=== PATIENT | female | born 1965 | race Caucasian/White ===

== ENCOUNTER 2021-04-21 18:39 | Emergency (ER) | payer OTHER, SELFPAY ==
--- NOTE | 2021-04-21 18:53 | W.ED.PSYCH ---
HPI - Psych General: Chief Complaint: Psychiatric Symptoms Stated Complaint: PSYCH EVAL Time Seen by Provider: 04/21/21 18:52 Source: EMS and police Limitations: altered mental status History of Present Illness: HPI Narrative: Ms. Colon is a 56-year-old lady with unclear past medical history though per medication review likely psych who presents the emergency department with altered mental status. She presents via law enforcement and EMS. Per law enforcement report they attempted to pull her over and she was acting erratically. She subsequently fled. She has been interacting with verbal and visual stimuli that are not present. The exact course, duration, intensity, provoking, exacerbating, or alleviating factors are unclear given patient's mental status change. She repeatedly motions with her hands seemingly to convey her will upon others. She states that she is going to go see her mother. When asked about her mother she does admit that her mother is . She will not elaborate further with grunts to this incongruity. Review of Systems General: Reports: ROS unobtainable due to mental status Physical Exam Narrative: EXAM NARRATIVE: GENERAL/CONSTITUTIONAL - well-appearing. Altered mental status Eyes - PERRL, no scleral icterus, no conjunctival injection ENMT - Atraumatic external nose and ears. Moist mucous membranes NECK - supple. trachea midline CARDIOVASCULAR - regular rate and rhythm. Peripheral pulses 2+ and equal RESPIRATORY -clear to auscultation bilaterally. ABDOMEN/GI - Nontender/Nondistended. MSK - Extremities without obvious deformity or tenderness to palpation SKIN - Warm, Dry NEURO - alert but unable to assess orientation. Moves all extremities equally. PSYCH -impaired cognition Course ED course: - Patient was seen and evaluated by me at bedside - Patient placed on cardiac monitors, IV access obtained - Initial evaluation notable for altered mental status, difficulty redirecting. Patient initially clinically concerning for psychosis - Medications ordered for patient and staff safety - Labs notable for mild leukocytosis without other significant hematologic abnormalities. Metabolic panel notable for marked hyponatremia and hypokalemia. Replenishment ordered of potassium and magnesium. IV fluid drip ordered at 300 cc/h for hyponatremia correction less than 0.5 mEq/hr - Imaging notable for no acute intracranial hemorrhage or mass. No acute lung pathology - Upon serial reexamination after treatment the patient was improved - Based on patient history, evaluation, labs, and imaging as interpreted the most likely cause of the patient's condition is likely multifactorial though symptomatic hyponatremia requiring admission is present. - We have no ICU beds, therefore patient will be transferred - Patient care handed off to overnight physician Dr. Cox pending transfer Vital Signs: Vital signs: Vital Signs Temperature 97.9 F 04/21/21 19:06 Pulse Rate 72 04/22/21 03:03 Respiratory Rate 16 04/22/21 03:03 Blood Pressure 123/50 04/22/21 03:03 Pulse Oximetry 98 04/22/21 03:03 MDM - Psych Medical Records: Attestation: I reviewed the patient's medical records. Lab Data: Attestation: I reviewed the patient's lab results. Labs: Lab Results 04/21/21 04/21/21 04/21/21 19:45 19:45 20:10 WBC RBC Hgb Hct MCV MCH MCHC RDW Plt Count MPV Neut % (Auto) Lymph % (Auto) Mcminn % (Auto) Eos % (Auto) Baso % (Auto) Neut # (Auto) Lymph # (Auto) Mcminn # (Auto) Eos # (Auto) Baso # (Auto) Nucleated RBC % (a uto) Nucleated RBCs # Sodium 117 mmol/L L* mmo l/L (136-145) Potassium 2.8 mmol/L L* mmo l/L (3.5-5.1) Chloride 82 mmol/L L mmol/ L (98-107) Carbon Dioxide 25 mmol/L mmol/L (22-29) Anion Gap 12.8 (5-19) BUN 4 mg/dL L mg/dL (6-20) Creatinine 0.3 mg/dL L mg/dL (0.5-0.9) GFR Calculation 231.0 mL/min H mL /min (90-130) Glucose 118 mg/dL H mg/dL (65-115) Calculated Osmolal ity 242 mOsm/kg L mOs m/kg (285-295) Calcium 8.8 mg/dL mg/dL (8.5-10.5) Magnesium Total Bilirubin 0.4 mg/dL mg/dL (0.15-1.2) AST 21 U/L U/L (0-32) ALT 11 U/L U/L (0-33) Alkaline Phosphata se 52 IU/L IU/L (35-105) Total Protein 6.1 g/dL L g/dL (6.6-8.7) Albumin 3.9 g/dL g/dL (3.5-5.2) Globulin 2.2 g/dL g/dL (1.3-4.6) TSH 1.71 uIU/mL uIU/m L (0.27-4.20) HCG, Qual Negative (Negative) Salicylates < 0.3 mg/dL L mg/ dL (3-10) Urine Opiates Scre en Negative ng/mL ng /mL (Negative) Acetaminophen < 5.0 ug/mL L ug/ mL (10-30) Ur Barbiturates Sc reen Negative ng/mL ng /mL (Negative) Ur Phencyclidine S crn Negative ng/mL ng /mL (Negative) Ur Amphetamines Sc reen Negative ng/mL ng /mL (Negative) U Benzodiazepines Scrn Negative ng/mL ng /mL (Negative) Urine Cocaine Scre en Negative ng/mL ng /mL (Negative) U Marijuana (THC) Screen Negative ng/mL ng /mL (Negative) Ethyl Alcohol < 10 mg/dL mg/dL (0-10) SARS-CoV-2 Ag (Rap id) 04/21/21 04/21/21 04/22/21 20:10 20:10 01:14 WBC 10.9 10^3/uL H 10 ^3/uL (4.0-10.0) RBC 4.51 10^6/uL 10^6 /uL (4.1-5.3) Hgb 14.4 g/dL g/dL (11.5-15.3) Hct 40.5 % % (37.0-47.0) MCV 89.8 fl fl (81-99) MCH 31.9 pg pg (28.0-34.0) MCHC 35.6 g/dL g/dL (30.0-36.0) RDW 11.8 % L % (12.1-15.1) Plt Count 301 10^3/cmm 10^3 /cmm (130-400) MPV 9.3 fL fL (7.4-10.4) Neut % (Auto) 77.0 % % Lymph % (Auto) 14.4 % % Mcminn % (Auto) 7.9 % % Eos % (Auto) 0.1 % % Baso % (Auto) 0.3 % % Neut # (Auto) 8.37 10^3/uL H 10 ^3/uL (1.8-7.7) Lymph # (Auto) 1.6 10^3/uL 10^3/ uL (0.8-4.8) Mcminn # (Auto) 0.9 10^3/uL 10^3/ uL (0.2-0.9) Eos # (Auto) 0.0 10^3/uL 10^3/ uL (0.0-0.8) Baso # (Auto) 0.0 10^3/uL 10^3/ uL (0.0-0.1) Nucleated RBC % (a uto) 0 % % Nucleated RBCs # 0.0 /100WBC /100W BC Sodium Potassium Chloride Carbon Dioxide Anion Gap BUN Creatinine GFR Calculation Glucose Calculated Osmolal ity Calcium Magnesium 1.2 mg/dL L mg/dL (1.7-2.3) Total Bilirubin AST ALT Alkaline Phosphata se Total Protein Albumin Globulin TSH HCG, Qual Salicylates Urine Opiates Scre en Acetaminophen Ur Barbiturates Sc reen Ur Phencyclidine S crn Ur Amphetamines Sc reen U Benzodiazepines Scrn Urine Cocaine Scre en U Marijuana (THC) Screen Ethyl Alcohol SARS-CoV-2 Ag (Rap id) Negative (Negative) EKG Data^: EKG 1: Attestation: I personally reviewed and interpreted this EKG as follows: EKG interpretation date: 04/21/21 EKG interpretation time: 21:33 Interpretation: Twelve-lead EKG shows a regular rhythm at a rate of 66. MD interval 154, QRS duration 93, QTc 459. Normal axis. Interpretation: Sinus rhythm. Nonspecific ST segment abnormalities. Critical Care Time Critical Care Time: Critical Care Time: Yes Total Critical Care Time: 35 Attestation: This case had a high probability of a clinically significant, sudden, or life threatening deterioration of this patient's condition which required my full and direct attention, intervention and personal management. Coding Level of Care Code ED Industrial/Organizational Psychologist for Jonna Turpin
[2021-04-21 19:06] VITALS: BP 159/88; PULSE 78; RESP 20; TEMP 36.6; O2SAT 97; BMI 21.6
--- NOTE | 2021-04-21 19:08 | ECG_ITS ---
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 Measurements Intervals [place] Rate: 66 P: 62 [place]: 154 QRS: 70 QRSD: 93 T: 61 QT: 445 QTc: 469 Interpretive Statements SINUS RHYTHM POSSIBLE LEFT ATRIAL ENLARGEMENT [-0.1mV P-WAVE IN V1/V2] MODERATE T-WAVE ABNORMALITY, CONSIDER ANTERIOR ISCHEMIA [-0.1+ mV T-WAVE IN V3/V4] No previous ECG available for comparison Electronically Signed On 04-22-2021 22:07:39 CDT by Yamel Morris M.D. [id number]
[2021-04-21] MEDS: haloperidol inj 5 mg/mL INJ 1 mL 2.5 MG IM (19:16)
[2021-04-21] MEDS: LORazepam 2 mg/mL INJ 1 mL IM (19:16)
[2021-04-21] MEDS: midazolam 1 mg/mL INJ 5 ML 4 MG IM (19:31)
[2021-04-21 20:06] LABS: HCG Qualitative Urine. Negative (Negative)
[2021-04-21 20:22] LABS: Basophils % 0.3 %; Eosinophils % 0.1 %; Hematocrit 40.5 % (37.0-47.0); Hemoglobin 14.4 g/dL (11.5-15.3); Lymphocytes # 1.6 10^3/uL (0.8-4.8); Lymphocytes % 14.4 %; Mean Corpuscular HGB Conc 35.6 g/dL (30.0-36.0); Mean Corpuscular Hemoglobin 31.9 pg (28.0-34.0); Mean Corpuscular Volume 89.8 fl (81-99); Mean Platelet Volume 9.3 fL (7.4-10.4); Monocytes # 0.9 10^3/uL (0.2-0.9); Monocytes % 7.9 %; Neutrophils # 8.37 10^3/uL (1.8-7.7); Nucleated Red Blood Cells % 0 %; Platelet Count 301 10^3/cmm (130-400); Red Blood Count 4.51 10^6/uL (4.1-5.3); Red Cell Distribution Width 11.8 % (12.1-15.1); White Blood Count 10.9 10^3/uL (4.0-10.0)
[2021-04-21 21:03] VITALS: PULSE 64; RESP 16; O2SAT 94
[2021-04-21 21:09] LABS: Alanine Aminotransferase 11 U/L (0-33); Albumin Level 3.9 g/dL (3.5-5.2); Alkaline Phosphatase 52 IU/L (35-105); Anion Gap 12.8 (5-19); Aspartate Amino Transferase 21 U/L (0-32); Blood Urea Nitrogen 4 mg/dL (6-20); Calcium 8.8 mg/dL (8.5-10.5); Carbon Dioxide 25 mmol/L (22-29); Chloride 82 mmol/L (98-107); Globulin 2.2 g/dL (1.3-4.6); Glucose 118 mg/dL (65-115); Osmolality Calculated 242 mOsm/kg (285-295); Thyroid Stimulating Hormone 1.71 uIU/mL (0.27-4.20); Total Bilirubin 0.4 mg/dL (0.15-1.2); Total Protein 6.1 g/dL (6.6-8.7)
[2021-04-21 21:15] LABS: Sodium 117 mmol/L (136-145)
[2021-04-21 21:16] LABS: Acetaminophen < 5.0 ug/mL (10-30); Alcohol Level < 10 mg/dL (0-10); Potassium 2.8 mmol/L (3.5-5.1); Salicylate < 0.3 mg/dL (3-10)
--- NOTE | 2021-04-21 21:25 | XRR_ITS ---
PROCEDURE INFORMATION: Exam: XR Chest Exam date and time: 04/21/2021 9:25 PM Age: 56 years old Clinical indication: Cough; Additional info: AMS, hyponatremia, ? mass TECHNIQUE: Imaging protocol: XR of the chest. Views: 1 view. COMPARISON: No relevant prior studies available. FINDINGS: Lungs: Unremarkable. No consolidation. Pleural spaces: Unremarkable. No pleural effusion. No pneumothorax. Heart/Mediastinum: Unremarkable. No cardiomegaly. Bones/joints: No acute abnormality. XR/XR chest 1V portable [id number] IMPRESSION: No acute findings. Radiation Dose CTDIVOL = (mGy): DLP = (mGy-cm)
--- NOTE | 2021-04-21 21:25 | CTR_ITS ---
PROCEDURE INFORMATION: Exam: CT Head Without Contrast Exam date and time: 04/21/2021 9:25 PM Age: 56 years old Clinical indication: Altered mental status/memory loss; Additional info: AMS TECHNIQUE: Imaging protocol: Computed tomography of the head without contrast. Radiation optimization: All CT scans at this facility use at least one of these dose optimization techniques: automated exposure control; mA and/or kV adjustment per patient size (includes targeted exams where dose is matched to clinical indication); or iterative reconstruction. COMPARISON: No relevant prior studies available. RADIATION DOSE METRICS: Total DLP (mGy-cm): 651.78 FINDINGS: Brain: There is volume loss and periventricular low density compatible with chronic small vessel disease changes. There is no acute hemorrhage, edema or mass effect. There are small bifrontal benign hygromas. Cerebral ventricles: No ventriculomegaly. Paranasal sinuses: Visualized sinuses are unremarkable. No fluid levels. Mastoid air cells: Visualized mastoid air cells are well aerated. Bones/joints: Unremarkable. No acute fracture. Soft tissues: Unremarkable. CT/CT head wo con* [id number] IMPRESSION: No acute intracranial abnormality. There is diffuse volume loss/small bilateral hygromas which are prominent for the patient's age. Radiation Dose CTDIVOL = (mGy): DLP = 651.78 (mGy-cm)
[2021-04-21 21:30] LABS: Amphetamines Screen Urine Negative (Negative); Barbiturates Screen Urine Negative (Negative); Benzodiazepines Screen Urine Negative (Negative); Cocaine Screen Urine Negative (Negative); Opiate Screen Urine Negative (Negative); PCP Screen Urine Negative (Negative); THC Screen Urine Negative (Negative)
[2021-04-21 21:53] LABS: Magnesium 1.2 mg/dL (1.7-2.3)
[2021-04-21] MEDS: lidocaine 1% 5 ML in potassium chloride premix 100 ML 25 ML IV (21:54)
[2021-04-21] MEDS: magnesium sulfate premix 2 GM/50 ML PIGGYBACK IV (21:54)
[2021-04-21 23:15] VITALS: BP 122/82; PULSE 67; RESP 16
[2021-04-22 00:24] VITALS: PULSE 69; RESP 20; O2SAT 94
--- NOTE | 2021-04-22 00:39 | PC.NURSE ---
Dr. Cox gave verbal order to cancel/discontinue fluids
--- NOTE | 2021-04-22 01:06 | PC.NURSE ---
Patient's vehicle is located at [address]
[2021-04-22 01:39] LABS: SARS Covid-2 Antigen Negative (Negative)
[2021-04-22 02:09] VITALS: BP 109/80; PULSE 78; RESP 21; O2SAT 97
[2021-04-22 03:03] VITALS: BP 123/50; PULSE 72; RESP 16; O2SAT 98
== END 2021-04-22 03:04 ==
PROVIDERS: Emergency Medicine; Emergency Provider Emergency Medicine
DX: R41.82 Altered mental status, unspecified (principal); D72.829 Elevated white blood cell count, unspecified; E87.1 Hypo-osmolality and hyponatremia; E87.6 Hypokalemia
CPT/HCPCS: 70450; 71045; 80053; 80306; 80307; 81025; 83735; 84443; 85025; 87426; 93005; 96365; 96366; 96367; 96372; 99285; J1630; J2060; J2250; J3475; J3480